=== PATIENT | male | born 1960 | race Hispanic/Latino ===

== ENCOUNTER 2022-12-28 06:59 | Inpatient (IN) | payer BC ==
[2022-12-28] MEDS ORDERED: Calcium Carbonate 500 MG ChewTAB PO PRN (10:43)
[2022-12-28] MEDS ORDERED: Senokot S 8.6-50 MG TAB PO PRN (10:43)
[2022-12-28] MEDS ORDERED: Acetaminophen 325 MG TAB PO PRN (10:43)
[2022-12-28 11:12] LABS: Hematocrit 28.6 % (42.0-52.0); Hemoglobin 9.7 g/dL (14.0-18.0)
[2022-12-28 11:39] LABS: Troponin I Less than 0.010 ng/mL (< 0.028)
[2022-12-28 11:42] LABS: Anion Gap 8 mmol/L (10-20); BUN (Urea Nitrogen) 66 mg/dL (8.4-25.7); Calc. Creatinine Clearance 0 mL/min (70-130); Calcium 8.1 mg/dL (7.8-10.44); Carbon Dioxide 20 mmol/L (23-31); Chloride 112 mmol/L (98-107); Estimated GFR 31; Glucose 104 mg/dL (80-115); Iron 52 ug/dL (65-175); Iron Binding Capacity, Total 164 mcg/dL (261-462); Potassium 4.2 mmol/L (3.5-5.1); Sodium 136 mmol/L (136-145)
[2022-12-28] MEDS: Sodium Chloride 0.9% 1,000 ML IV SCH ×2 (12:00→17:53)
[2022-12-28 13:11] VITALS: BMI 27.8
[2022-12-28 16:16] LABS: Hematocrit 25.3 % (42.0-52.0); Hemoglobin 8.7 g/dL (14.0-18.0)
[2022-12-28 16:52] LABS: INR-International Normal Ratio 1.2; Prothrombin Time 15.9 sec (12.0-14.7)
[2022-12-28 16:53] LABS: PTT 37.7 sec (22.9-36.1)
[2022-12-28] MEDS: Pantoprazole 80 MG in Sodium Chloride 0.9% 100 ML IVPB SCH (17:53)
[2022-12-28 17:56] LABS: Bacteria/HPF None Seen HPF (None Seen); Bilirubin Negative (Negative); Blood, Urine Negative (Negative); Clarity Clear (Clear); Glucose, Urine (Dipstick) Greater than 1000 mg/dL (Negative); Ketone, Urine Negative (Negative); Leukocyte Negative Leu/uL (Negative); Nitrite Negative (Negative); Protein, Urine (Dipstick) Negative (Neg-Trace); RBC/HPF 0-3 HPF (0-3); Specific Gravity, Urine 1.012 (1.002-1.036); Squamous Epithelial None Seen HPF (0-3); Urobilinogen Normal mg/dL (Less than 2); WBC/HPF 0-3 HPF (0-3)
[2022-12-28] MEDS ORDERED: Ketamine 50 MG/ML (10ML VIAL) ONE (17:56)
[2022-12-28] MEDS ORDERED: Lidocaine 1% PF 5 ML VIAL ONE (18:16)
[2022-12-28] MEDS ORDERED: PROPOFOL 200 MG/20 ML VIAL ONE (18:16)
[2022-12-28] MEDS ORDERED: Ondansetron HCl/PF 4 MG/2 ML Vial IVP PRN (18:38)
[2022-12-28] MEDS ORDERED: Promethazine HCl 25 MG/ML VIAL IM PRN (18:38)
[2022-12-28] MEDS: Folic Acid 1 MG TAB PO SCH (20:56)
[2022-12-28] MEDS: Propranolol 10 MG TAB PO SCH (20:56)
[2022-12-28] MEDS: Cefdinir 300 MG CAP PO SCH (20:56)
[2022-12-28] MEDS: Lactated Ringer's 1,000 ML IV SCH (20:56)
[2022-12-28] MEDS: Multivit, Therapeutic 1 TAB PO SCH (20:56)
[2022-12-28] MEDS: Flecainide 50 MG TAB PO SCH (20:56)
[2022-12-28 23:11] LABS: Hematocrit 24.8 % (42.0-52.0); Hemoglobin 8.3 g/dL (14.0-18.0); Mean Corpuscular HGB CONC 33.5 g/dL (32.0-36.0); Mean Corpuscular Hemoglobin 33.6 pg (27.0-31.0); Mean Corpuscular Volume 100.4 fl (78.0-98.0); Mean Platelet Volume 9.4 fL (7.4-10.4); Platelet Count 162 10x3/uL (130-400); RBC Distribution Width 12.9 % (11.5-14.5); Red Blood Cell (RBC) Count 2.47 mill/uL (4.70-6.10); White Blood Cell (WBC) Count 4.7 10x3/uL (4.8-10.8)
[2022-12-29] MEDS: Lactated Ringer's 1,000 ML IV SCH ×3 (01:41→11:26)
[2022-12-29] MEDS: Pantoprazole 80 MG in Sodium Chloride 0.9% 100 ML IVPB SCH (01:42)
[2022-12-29 07:21] LABS: #Monocytes 0.5 thou/uL (0.11-0.59); #Neutrophils 2.2 thou/uL (1.40-6.50); %Basophils 0.3 % (0.0-1.0); %Lymphocytes 30.8 % (21.0-51.0); %Monocytes 11.9 % (0.0-10.0); %Neutrophils 56.7 % (42.0-75.0); Hematocrit 21.3 % (42.0-52.0); Hemoglobin 7.3 g/dL (14.0-18.0); Mean Corpuscular HGB CONC 34.3 g/dL (32.0-36.0); Mean Corpuscular Hemoglobin 32.7 pg (27.0-31.0); Platelet Count 131 10x3/uL (130-400); RBC Distribution Width 12.9 % (11.5-14.5); Red Blood Cell (RBC) Count 2.23 mill/uL (4.70-6.10); White Blood Cell (WBC) Count 3.9 10x3/uL (4.8-10.8)
[2022-12-29 07:28] LABS: Mean Corpuscular Volume 95.5 fl (78.0-98.0)
[2022-12-29 07:48] LABS: ALT (SGPT) 20 U/L (8-55); AST (SGOT) 16 U/L (5-34); Albumin 2.9 g/dL (3.4-4.8); Alkaline Phosphatase 48 U/L (40-110); Anion Gap 10 mmol/L (10-20); BUN (Urea Nitrogen) 37 mg/dL (8.4-25.7); Bilirubin, Total 0.4 mg/dL (0.2-1.2); Calc. Creatinine Clearance 85 mL/min (70-130); Calcium 7.9 mg/dL (7.8-10.44); Carbon Dioxide 18 mmol/L (23-31); Chloride 113 mmol/L (98-107); Estimated GFR 64; Globulin 1.9 g/dL (2.4-3.5); Glucose 87 mg/dL (80-115); Potassium 3.8 mmol/L (3.5-5.1); Protein, Total 4.8 g/dL (5.8-8.1); Sodium 137 mmol/L (136-145)
[2022-12-29] MEDS: Flecainide 50 MG TAB PO SCH ×2 (09:24→20:12)
[2022-12-29] MEDS: Cefdinir 300 MG CAP PO SCH ×2 (09:24→20:12)
[2022-12-29] MEDS: Propranolol 10 MG TAB PO SCH ×2 (09:45→23:48)
[2022-12-29] MEDS: Pantoprazole 80 MG, Admixture Fee 1 EACH in Sodium Chloride 0.9% 100 ML IVPB SCH ×2 (11:26→20:12)
[2022-12-29 16:40] LABS: Hematocrit 21.8 % (42.0-52.0); Hemoglobin 7.5 g/dL (14.0-18.0); Platelet Count 134 10x3/uL (130-400)
[2022-12-29] MEDS: Folic Acid 1 MG TAB PO SCH (20:12)
[2022-12-29] MEDS: Multivit, Therapeutic 1 TAB PO SCH (20:12)
[2022-12-30 03:47] LABS: #Monocytes 0.4 thou/uL (0.11-0.59); #Neutrophils 2.1 thou/uL (1.40-6.50); %Basophils 0.3 % (0.0-1.0); %Lymphocytes 34.6 % (21.0-51.0); %Monocytes 9.9 % (0.0-10.0); %Neutrophils 54.9 % (42.0-75.0); Hematocrit 23.7 % (42.0-52.0); Hemoglobin 8.2 g/dL (14.0-18.0); Mean Corpuscular HGB CONC 34.6 g/dL (32.0-36.0); Mean Corpuscular Hemoglobin 32.3 pg (27.0-31.0); Mean Corpuscular Volume 93.3 fl (78.0-98.0); Mean Platelet Volume 8.8 fL (7.4-10.4); Platelet Count 132 10x3/uL (130-400); RBC Distribution Width 13.8 % (11.5-14.5); Red Blood Cell (RBC) Count 2.54 mill/uL (4.70-6.10); White Blood Cell (WBC) Count 3.7 10x3/uL (4.8-10.8)
[2022-12-30 04:09] LABS: Anion Gap 11 mmol/L (10-20); BUN (Urea Nitrogen) 17 mg/dL (8.4-25.7); Calc. Creatinine Clearance 116 mL/min (70-130); Calcium 8.3 mg/dL (7.8-10.44); Carbon Dioxide 22 mmol/L (23-31); Chloride 110 mmol/L (98-107); Estimated GFR 92; Glucose 94 mg/dL (80-115); Potassium 3.6 mmol/L (3.5-5.1); Sodium 139 mmol/L (136-145)
[2022-12-30] MEDS: Lactated Ringer's 1,000 ML IV SCH (05:38)
[2022-12-30] MEDS: Pantoprazole 80 MG, Admixture Fee 1 EACH in Sodium Chloride 0.9% 100 ML IVPB SCH ×2 (08:20→20:30)
[2022-12-30] MEDS: Propranolol 10 MG TAB PO SCH ×2 (08:21→20:33)
[2022-12-30] MEDS: Flecainide 50 MG TAB PO SCH ×2 (08:21→20:30)
[2022-12-30] MEDS: Bismuth SubsALICYLATE 30 ML(17.5 mg/mL) Susp PO SCH ×4 (11:19→20:30)
[2022-12-30] MEDS: Doxycycline 100 MG CAP PO SCH ×2 (11:20→20:30)
[2022-12-30] MEDS: metroNIDAZOLE 500 MG TAB PO SCH ×4 (11:20→20:31)
[2022-12-30] MEDS: Multivit, Therapeutic 1 TAB PO SCH (20:31)
[2022-12-30] MEDS: Folic Acid 1 MG TAB PO SCH (20:31)
[2022-12-31] MEDS: Lactated Ringer's 1,000 ML IV SCH (02:58)
[2022-12-31] MEDS: Pantoprazole 80 MG, Admixture Fee 1 EACH in Sodium Chloride 0.9% 100 ML IVPB SCH (06:48)
[2022-12-31] MEDS: metroNIDAZOLE 500 MG TAB PO SCH ×4 (07:59→21:36)
[2022-12-31] MEDS: Flecainide 50 MG TAB PO SCH ×2 (07:59→21:37)
[2022-12-31] MEDS: Bismuth SubsALICYLATE 30 ML(17.5 mg/mL) Susp PO SCH ×4 (07:59→21:37)
[2022-12-31] MEDS: Doxycycline 100 MG CAP PO SCH ×2 (07:59→21:36)
[2022-12-31] MEDS: Propranolol 10 MG TAB PO SCH ×4 (08:00→21:44)
[2022-12-31 08:37] LABS: #Monocytes 0.3 thou/uL (0.11-0.59); #Neutrophils 2.5 thou/uL (1.40-6.50); %Basophils 0.2 % (0.0-1.0); %Lymphocytes 34.5 % (21.0-51.0); %Monocytes 7.8 % (0.0-10.0); %Neutrophils 56.6 % (42.0-75.0); Hematocrit 26.4 % (42.0-52.0); Hemoglobin 9.1 g/dL (14.0-18.0); Mean Corpuscular HGB CONC 34.5 g/dL (32.0-36.0); Mean Corpuscular Volume 95.7 fl (78.0-98.0); Mean Platelet Volume 8.8 fL (7.4-10.4); Platelet Count 147 10x3/uL (130-400); RBC Distribution Width 13.5 % (11.5-14.5); Red Blood Cell (RBC) Count 2.76 mill/uL (4.70-6.10); White Blood Cell (WBC) Count 4.4 10x3/uL (4.8-10.8)
[2022-12-31 14:54] VITALS: BP 147/67
[2022-12-31] MEDS: Folic Acid 1 MG TAB PO SCH (21:37)
[2022-12-31] MEDS: Multivit, Therapeutic 1 TAB PO SCH (21:40)
[2023-01-01 05:33] LABS: #Monocytes 0.5 thou/uL (0.11-0.59); #Neutrophils 2.9 thou/uL (1.40-6.50); %Basophils 0.4 % (0.0-1.0); %Monocytes 8.9 % (0.0-10.0); %Neutrophils 56.4 % (42.0-75.0); Hematocrit 24.8 % (42.0-52.0); Hemoglobin 8.5 g/dL (14.0-18.0); Mean Corpuscular HGB CONC 34.3 g/dL (32.0-36.0); Mean Corpuscular Volume 93.2 fl (78.0-98.0); Mean Platelet Volume 9.1 fL (7.4-10.4); Platelet Count 185 10x3/uL (130-400); RBC Distribution Width 13.2 % (11.5-14.5); Red Blood Cell (RBC) Count 2.66 mill/uL (4.70-6.10); White Blood Cell (WBC) Count 5.2 10x3/uL (4.8-10.8)
[2023-01-01] MEDS: metroNIDAZOLE 500 MG TAB PO SCH ×2 (09:31→13:06)
[2023-01-01] MEDS: Doxycycline 100 MG CAP PO SCH (09:32)
[2023-01-01] MEDS: Flecainide 50 MG TAB PO SCH (09:32)
[2023-01-01] MEDS: Propranolol 10 MG TAB PO SCH (09:32)
[2023-01-01] MEDS: Bismuth SubsALICYLATE 30 ML(17.5 mg/mL) Susp PO SCH ×2 (10:09→13:08)
[2023-01-01 12:49] VITALS: TEMP 98.7
== END 2023-01-01 13:30 | disposition home or self-care (01) | DRG 377 ==
LOC: 2NO 09:58 → IMCU/EMU 18:33
PROVIDERS: ADMIT Student in an Organized Health Care Education/Training Program; ATTEND Family Medicine
PROC: 0W3P8ZZ Control Bleeding in Gastrointestinal Tract, Via Natural or Artificial Opening Endoscopic (ICD-10-PCS; principal; 2022-12-28)
PROC: 30233N1 Transfusion of Nonautologous Red Blood Cells into Peripheral Vein, Percutaneous Approach (ICD-10-PCS; 2022-12-29)
DX: K26.4 Chronic or unspecified duodenal ulcer with hemorrhage (principal); N17.0 Acute kidney failure with tubular necrosis; A04.8 Other specified bacterial intestinal infections; D62 Acute posthemorrhagic anemia; E87.20 Acidosis, unspecified; I10 Essential (primary) hypertension; I44.0 Atrioventricular block, first degree; E66.9 Obesity, unspecified; I48.0 Paroxysmal atrial fibrillation; I95.9 Hypotension, unspecified; J01.90 Acute sinusitis, unspecified; Z79.01 Long term (current) use of anticoagulants; Z79.899 Other long term (current) drug therapy; Z90.49 Acquired absence of other specified parts of digestive tract; Z68.28 Body mass index [BMI] 28.0-28.9, adult
CPT/HCPCS: 36415; 36430; 76770; 80048; 80053; 81001; 82728; 83540; 83550; 84484; 85025; 85610; 85730; 86850; 86900; 86901; 87338; C9113; J2704; J3490; J7050; J7120; P9016